=== PATIENT | female | born 1945 | race Caucasian/White ===

== ENCOUNTER → 2017-11-12 | Outpatient (CLI) | payer OTHER, BC | LOC: RAD 08:59 | DX: R05 Cough (principal) ==

== ENCOUNTER → 2018-11-25 | Outpatient (CLI) | payer OTHER, BC | LOC: CAT 10:37 | DX: M47.816 Spondylosis without myelopathy or radiculopathy, lumbar region (principal); M43.16 Spondylolisthesis, lumbar region; M51.26 Other intervertebral disc displacement, lumbar region; N85.8 Other specified noninflammatory disorders of uterus; K76.0 Fatty (change of) liver, not elsewhere classified ==

== ENCOUNTER → 2019-03-04 | Outpatient (CLI) | payer OTHER, BC ==
--- NOTE | 2019-03-04 10:13 | 2DMMODE ---
[facility] [place] [address] 2 D/M-MODE ECHOCARDIOGRAM Name: MILANA MCCALLUM Room #: REG [facility]#: [id number] ������������� Admission: 03/04/19 ������������� Attend Phys: SHANIKA Mccoy Discharge: ��� ������������� ��� Date of : 43 Date of Service: 03/04/19 1013 �� Report #: [id number] �������� ��������������������������������������������[id number] THIS REPORT FOR: //name// APPROVED REPORT Study performed: 03/04/2019 08:58:52 EXAM: Comprehensive 2D, Doppler, and color-flow Echocardiogram Patient Location: Out-Patient Room #: Echo Lab 2 Status: routine BSA: 1.70 HR: 70 bpm BP: 120/70 mmHg Rhythm: NSR Other Information Study Quality: Adequate Indications Dizziness and Vertigo Leg Edema 2D Dimensions RVDd: 21.33 mm IVSd: 9.78 (7-11mm) LVOT Diam: 18.52 (18-24mm) LVDd: 37.74 mm PWd: 11.92 (7-11mm) Ascending Ao: 30.01 (22-36mm) LVDs: 25.64 (25-40mm) Aortic Root: 30.14 mm IVC: 17.00 mm Volumes Left Atrial Volume (Systole) Single Plane 4CH: 34.89 mL Single Plane 2CH: 21.95 mL LA ESV Index: 20.00 mL/m2 Aortic Valve AoV Peak Celio.: 1.25 m/s AO Peak Gr.: 6.24 mmHg LVOT Max P.62 mmHg LVOT Max V: 0.95 m/s GET Vmax: 2.05 cm2 Mitral Valve E/A Ratio: 1.0 MV Decel. Time: 191.79 ms [facility] [address] [place] [address] 2 D/M-MODE ECHOCARDIOGRAM Name: MILANA MCCALLUM Room #: [facility]#: [id number] ������������� Admission: 03/04/19 ������������� Attend Phys: SHANIKA Mccoy Discharge: ��� ������������� ��� Date of : 43 Date of Service: 03/04/19 1013 �� Report #: [id number] �������� ��������������������������������������������[id number] MV E Max Celio.: 0.94 m/s MV A Celio.: 0.93 m/s MV PHT: 55.62 ms IVRT: 83.04 ms Pulmonary Valve PV Peak Celio.: 0.93 m/s PV Peak Gr.: 3.46 mmHg Pulmonary Vein P Vein S: 0.63 m/s P Vein A: 0.32 m/s P Vein D: 0.55 m/s P Vein A Dur.: 110.7 msec P Vein S/D Ratio: 1.15 Tricuspid Valve TR Peak Celio.: 2.58 m/s TR Peak Gr.: 26.53 mmHg PA Pressure: 32.00 mmHg Left Ventricle The left ventricle is normal size. There is normal LV segmental wall motion. There is normal left ventricular wall thickness. The left ventricular systolic function is normal. The left ventricular ejection fraction is within the normal range. LVEF is 55-60%. Moderate diastolic dysfunction is present (pseudonormal filling). Right Ventricle The right ventricle is normal size. The right ventricular systolic function is normal. Atria The left atrium size is normal. The right atrium size is normal. Aortic Valve The aortic valve is normal in structure. No aortic regurgitation is present. There is no aortic valvular stenosis. Mitral Valve The mitral valve is normal in structure. Mild mitral regurgitation. No evidence of mitral valve stenosis. Tricuspid Valve The tricuspid valve is normal in structure. Mild tricuspid regurgitation. Estimated PAP is 32mmHg. [facility] [address] [place] [address] 2 D/M-MODE ECHOCARDIOGRAM Name: MILANA MCCALLUM [facility] [id number] ������������� Admission: 03/04/19 ������������� Attend Phys: SHANIKA Mccoy Discharge: ��� ������������� ��� Date of : 43 Date of Service: 03/04/19 1013 �� Report #: [id number] �������� ��������������������������������������������[id number] Pulmonic Valve The pulmonary valve is normal in structure. Trace pulmonic regurgitation. Great Vessels The aortic root is normal in size. IVC is normal in size and collapses >50% with inspiration. Pericardium There is no pericardial effusion. <Conclusion> The left ventricle is normal size. LVEF is 55-60%. The aortic valve is normal in structure. The mitral valve is normal in structure. Mild mitral regurgitation. The tricuspid valve is normal in structure. Mild tricuspid regurgitation. Estimated PAP is 32mmHg. The pulmonary valve is normal in structure. Trace pulmonic regurgitation. There is no pericardial effusion. ��������������������������������������������� <ELECTRONICALLY SIGNED> ���������������������������������������� By: Eliseo Ledesma MD ��������������������������������������������� 03/04/19 1013 1013 1013 Eliseo Ledesma MD /INF
== END ==
LOC: CV 08:44
DX: I08.1 Rheumatic disorders of both mitral and tricuspid valves (principal); Z88.1 Allergy status to other antibiotic agents; Z88.8 Allergy status to other drugs, medicaments and biological substances; Z91.018 Allergy to other foods

== ENCOUNTER 2019-07-14 09:33 | Emergency (ER) | payer OTHER, BC ==
[~2019-07-14] VITALS: Ht 170.2 cm; Wt 59.0 kg
[2019-07-14] MEDS ORDERED: PROAIR RESPICL90 MCG INH (09:38)
[2019-07-14] MEDS ORDERED: LIPITOR10 MG PO (09:38)
[2019-07-14] MEDS ORDERED: FASENRA30 MG/1 ML SUBQ (09:40)
[2019-07-14] MEDS ORDERED: RESTASIS MULTI5.5 ML OPHTHALMIC (09:41)
[2019-07-14] MEDS ORDERED: PLAQUENIL200 MG PO (09:42)
[2019-07-14] MEDS ORDERED: GABAPENTIN600 M1 PO (09:42)
[2019-07-14] MEDS ORDERED: SYNTHROID100 MC1 PO (09:42)
[2019-07-14] MEDS ORDERED: ATIVAN0.5 M1 PO (09:43)
[2019-07-14] MEDS ORDERED: MECLIZINE HCL25 M1 PO (09:43)
[2019-07-14] MEDS ORDERED: SPIRIVA18 MCG INH (09:44)
[2019-07-14] MEDS ORDERED: SINGULAIR 10 MG10 M1 PO (09:44)
[2019-07-14 09:54] LABS: ABSOLUTE NEUTROPHILS 3.7 thou/uL (1.4-8.2); BASOPHILS 0.6 % (0.0-2.0); HEMATOCRIT 36.9 % (37.0-47.0); HEMOGLOBIN 12.2 gm/dL (12.0-15.0); LYMPHOCYTES 19.7 % (24.0-44.0); MCH 31.2 pg (26.0-34.0); MCHC 33.1 g/dL (28.0-37.0); MCV 94.2 fL (80.0-100.0); MONOCYTES 7.2 % (1.0-8.0); PLATELET COUNT 274 thou/uL (150-400); POLYS 72.5 % (36.0-66.0); RBC 3.91 mil/uL (4.20-5.00); RDW 13.6 % (10.5-14.5); WBC 5.1 thou/uL (4.0-11.0)
[2019-07-14 10:02] LABS: ANION GAP 6 mmol/L (7-16); BUN 6 mg/dL (7-18); CALCIUM 9.7 mg/dL (8.5-10.1); CHLORIDE 105 mmol/L (98-107); CO2 32 mmol/L (21-32); CREATININE 0.8 mg/dL (0.6-1.0); GLUCOSE 85 mg/dL (74-106); POTASSIUM 3.6 mmol/L (3.5-5.1); SODIUM 143 mmol/L (136-145)
[2019-07-14 10:11] LABS: TROPONIN-I <0.06 ng/mL (<0.06)
[2019-07-14 11:52] VITALS: BP 141/72
--- NOTE | 2019-07-16 12:11 | EKG ---
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1945 Requested By: Kojo Lezama Order Number: [id number] MD: Marvin Church Measurements Intervals [employer] Rate: 74 P: 7 MS: 139 QRS: 18 QRSD: 81 T: -1 QT: 409 QTc: 454 Interpretive Statements Sinus rhythm Atrial premature complex RSR' in V1 or V2, right VCD Nonspecific T-wave abnormalities No previous ECG available for comparison Electronically Signed On 07-16-2019 12:11:06 [employer] by Marvin Church [email or web address] <ELECTRONICALLY SIGNED> By: Marvin Church MD 07/16/19 1211 1000 Alexys Church MD /BETO
== END 2019-07-14 11:56 | disposition home or self-care (01) ==
LOC: ER 09:33
PROVIDERS: Emergency Medicine
DX: M25.461 Effusion, right knee (principal); R06.02 Shortness of breath; Z88.2 Allergy status to sulfonamides; Z88.8 Allergy status to other drugs, medicaments and biological substances

== ENCOUNTER → 2019-07-27 | Outpatient (CLI) | payer OTHER, BC ==
[~2019-07-27] MED LIST: ATIVAN0.5 M1 PO; FASENRA30 MG/1 ML SUBQ; GABAPENTIN600 M1 PO; LIPITOR10 MG PO; MECLIZINE HCL25 M1 PO; PLAQUENIL200 MG PO; PROAIR RESPICL90 MCG INH; RESTASIS MULTI5.5 ML OPHTHALMIC; SINGULAIR 10 MG10 M1 PO; SPIRIVA18 MCG INH; SYNTHROID100 MC1 PO
== END ==
LOC: CAT 13:59
DX: M43.16 Spondylolisthesis, lumbar region (principal); J98.11 Atelectasis; I77.4 Celiac artery compression syndrome; M48.061 Spinal stenosis, lumbar region without neurogenic claudication; M47.816 Spondylosis without myelopathy or radiculopathy, lumbar region; Z88.8 Allergy status to other drugs, medicaments and biological substances